=== PATIENT | female | born 2000 | race Caucasian/White ===

== ENCOUNTER 2018-12-26 09:29 | Emergency (ER) | payer OTHER ==
[2018-12-26 09:35] VITALS: BP 128/75; PULSE 93; TEMP 98.6; BMI 34.3
--- NOTE | 2018-12-26 10:13 | PDOC ---
History of Present Illness - General Chief Complaint: Urinary Problem Stated Complaint: POSSIBLE UTI Time Seen by Provider: 12/26/18 09:56 History Source: Patient Exam Limitations: No Limitations - History of Present Illness Initial Comments: 12/26/18 10:05 18 yo F 15 weeks (LMP Jul), comes in c/o 2 days of burning/pain on urination with frequency/urgency on urination. She also states that she saw blood in her urine this morning and when she wiped but she is unsure if she was bleeding from the vagina or from the urine. No abdominal pain, no fever/chills, no NVD, no change in appetite, no vaginal discharge. NO other complaints today. Pt has care, has had a documented IUP [id number] Past History - Past Medical History Allergies/Adverse Reactions: Allergies Allergy/AdvReac Type Severity Reaction Status Date / Time No Known Allergies Allergy Verified 12/26/18 09:35 Home Medications: Ambulatory Orders Nitrofurantoin Monohyd/M-Cryst [Macrobid -] 100 mg PO BID #14 capsule 12/26/18 Prenat 115/Iron Fum/Folic/Dss [ 19 Tablet] 1 each PO BID 12/26/18 COPD: No - Suicide/Smoking/Psychosocial Hx Smoking History: Never smoked Review of Systems - Review of Systems Able to Perform ROS?: Yes Constitutional: No: Chills, Fever, Malaise, Night Sweats HEENTM: No: Eye Pain, Recent change in vision, Throat Pain Respiratory: No: Cough, Shortness of Breath Cardiac (ROS): No: Chest Pain, Palpitations, Chest Tightness ABD/GI: No: Diarrhea, Nausea, Vomiting, Abdominal cramping : Yes: Dysuria, Hematuria Musculoskeletal: No: Back Pain Integumentary: No: Rash Neurological: No: Headache, Numbness, Dizziness Psychiatric: No: Change in Appetite Endocrine: No: Unexplained Weight Loss *Physical Exam - Vital Signs Last Vital Signs Temp Pulse Resp BP Pulse Ox 98.6 F 93 H 18 128/75 97 12/26/18 09:32 12/26/18 09:32 12/26/18 09:32 12/26/18 09:32 12/26/18 09:32 - Physical Exam General Appearance: Yes: Nourished. No: Apparent Distress HEENT: positive: TONIA, Normal ENT Inspection, Normal Voice. negative: Pale Conjunctivae, Scleral Icterus (R), Scleral Icterus (L) Neck: positive: Supple. negative: Decreased range of motion, Tender midline Respiratory/Chest: positive: Lungs Clear, Normal Breath Sounds. negative: Respiratory Distress, Accessory Muscle Use Cardiovascular: positive: Regular Rhythm, Regular Rate Female Pelvic Exam: positive: normal external exam. negative: CMT, vaginal bleeding Gastrointestinal/Abdominal: positive: Normal Bowel Sounds, Soft. negative: Tender Musculoskeletal: positive: Normal Inspection. negative: CVA Tenderness, Decreased Range of Motion Extremity: positive: Normal Capillary Refill, Normal Inspection, Normal Range of Motion. negative: Tender, Pedal Edema Integumentary: positive: Normal Color, Dry. negative: Jaundice, Rash Neurologic: positive: Fully Oriented, Alert, Normal Mood/Affect Moderate Sedation - Procedure Monitoring Vital Signs: Procedure Monitoring Vital Signs Temperature 98.6 F 12/26/18 09:32 Pulse Rate 93 H 12/26/18 09:32 Respiratory Rate 18 12/26/18 09:32 Blood Pressure 128/75 12/26/18 09:32 O2 Sat by Pulse Oximetry (%) 97 12/26/18 09:32 Medical Decision Making - Medical Decision Making 12/26/18 10:13 18 yo F 15weeks , w/ likely UTI w/ hematuria. NO vaginal bleeding seen one exam. Pt does not have spotting/bleeding/no blood in underwear. BLood that she noticed was only with urination. WIll treat with macrobid and will have her follow up with her OBGYN Return for worsening/concerning symptoms Pt verbalizes understanding and agreees with plan *DC/Admit/Observation/Transfer Diagnosis at time of Disposition: Urinary tract infection Qualifiers: Urinary tract infection type: acute cystitis Hematuria presence: with hematuria Qualified Code(s): N30.01 - Acute cystitis with hematuria - Discharge Dispostion Disposition: HOME Condition at time of disposition: Stable - Referrals - Patient Instructions Printed Discharge Instructions: DI for Urinary Tract Infection (UTI) Additional Instructions: Follow up with your OBGYN. Return for worsening/concerning symptoms including abdominal pain, vaginal bleeding - Post Discharge Activity
[2018-12-26 10:42] LABS: HCG,QUALITATIVE URINE Positive
[2018-12-26 12:55] LABS: URINE APPEARANCE CLOUDY; URINE BILIRUBIN NEGATIVE (<2.0 mg/dL); URINE COLOR YELLOW; URINE GLUCOSE (UA) NEGATIVE (NEGATIVE); URINE KETONE NEGATIVE (NEGATIVE); URINE LEUK ESTERASE 2+ (NEGATIVE); URINE NITRITE NEGATIVE (NEGATIVE); URINE PROTEIN 2+ (NEGATIVE); URINE UROBILINOGEN NEGATIVE mg/dL (0.2-1.0)
[2018-12-26 13:19] LABS: EPI CELLS RARE /HPF (FEW); URINE BACTERIA FEW /hpf (NONE SEEN); URINE MUCUS RARE
== END 2018-12-26 10:39 | disposition home or self-care (01) ==
LOC: JERFT 09:29
DX: O26.892 Other specified pregnancy related conditions, second trimester (principal); O23.12 Infections of bladder in pregnancy, second trimester; N30.81 Other cystitis with hematuria; Z3A.15 15 weeks gestation of pregnancy
CPT/HCPCS: 81003; 81015; 84703; 87086; 87186; 99281-25

== ENCOUNTER 2019-06-12 19:54 | Inpatient (IN) | payer OTHER ==
[2019-06-12] MEDS ORDERED: DEXTROSE 5%-LACTATED RINGERS 1,000 ML IV ONE (20:40)
[2019-06-12 21:36] VITALS: BMI 43.2
--- NOTE | 2019-06-12 21:40 | HP ---
Past Medical History - Admission Chief Complaint: Labor pain History of Present Illness: 18 yo , @ 39 weeks gestation, EDC 06/18/19, admitted for labor pain. Upon admission she was 5cm dilated. History Source: Patient Limitations to Obtaining History: No Limitations - Past Medical History ...: 1 ...Para: 0 ...Term: 0 ...: 0 ...Spon : 0 ...Induced : 0 ...LMP: 09/11/18 ... Weeks Gestation by Dates: 39.1 ...EDC by Dates: 06/18/19 ...EDC by Sono: 06/18/19 - Past Surgical History Past Surgical History: Yes: None Hx Myomectomy: No Hx Transabdominal Cerclage: No - Smoking History Smoking history: Never smoked - Social History Usual Living Arrangement: Yes: With Parent Home Medications - Allergies Allergies/Adverse Reactions: Allergies Allergy/AdvReac Type Severity Reaction Status Date / Time No Known Allergies Allergy Verified 06/12/19 20:33 - Home Medications Home Medications: Ambulatory Orders Prenat 115/Iron Fum/Folic/Dss [ 19 Tablet] 1 each PO BID 12/26/18 Review of Systems - Review of Systems Constitutional: reports: No Symptoms Eyes: reports: No Symptoms HENT: reports: No Symptoms Neck: reports: No Symptoms Cardiovascular: reports: No Symptoms Respiratory: reports: No Symptoms Gastrointestinal: reports: No Symptoms Genitourinary: reports: Pain Breasts: reports: No Symptoms Reported Musculoskeletal: reports: No Symptoms Neurological: reports: No Symptoms Endocrine: reports: No Symptoms Psychiatric: reports: No Symptoms Pain Intensity: 7 Physical Exam - Maternity Vital Signs: Vital Signs Temperature 99.3 F 06/12/19 20:40 Pulse Rate 102 H 06/12/19 20:40 Respiratory Rate 20 06/12/19 20:40 Blood Pressure 139/87 06/12/19 20:40 O2 Sat by Pulse Oximetry (%) Constitutional: Yes: Well Nourished Eyes: Yes: Conjunctiva Clear HENT: Yes: Atraumatic Neck: Yes: Supple Cardiovascular: Yes: Regular Rate and Rhythm Lungs: Clear to auscultation - Abdominal Exam/OB Number of Fetuses: Single Presentation: Vertex Intensity: Moderate - Vaginal Exam/OB Dilatation (cm): 5 Effacement (%): 90 Amniotic Membrane Status: Intact Presentation: Vertex/Position Station: -1 - Physical Exam ...Motor Strength: WNL Psychiatric: Yes: Alert, Oriented Problem List - Problems (1) 39 weeks gestation of Code(s): Z3A.39 - 39 WEEKS GESTATION OF (2) Pain during labor Code(s): O99.89 - OTH DISEASES AND CONDITIONS COMPL PREG/CHLDBRTH; R52 - PAIN, UNSPECIFIED Assessment/Plan Active labor Admit to L&D Analgesia as needed Anticipate
[2019-06-12 21:45] LABS: BASO % 0.2 % (0-2.0); EOS % 0.5 % (0-4.5); HEMATOCRIT 40.9 % (32.4-45.2); HEMOGLOBIN 14.1 GM/dL (10.7-15.3); LYMPH % 19.3 % (8-40); MCH 31.8 pg (25.7-33.7); MCHC 34.6 g/dl (32.0-36.0); MEAN PLT VOLUME 7.9 fl (7.5-11.1); MONO % 7.4 % (3.8-10.2); NEUT % 72.6 % (42.8-82.8); PLATELET COUNT 137 K/MM3 (134-434); RBC 4.44 M/mm3 (3.60-5.2); RDW 13.4 % (11.6-15.6); WHITE BLOOD COUNT 7.3 K/mm3 (4.0-10.0)
[2019-06-12] MEDS ORDERED: DEXTROSE 5%-LACTATED RINGERS 1,000 ML IV SCH (21:45)
[2019-06-12 21:56] LABS: COCAINE, UR NEGATIVE ng/ml (CUTOFF=300); METHADONE, UR NEGATIVE ng/ml (CUTOFF=300); OPIATES, URI NEGATIVE ng/ml (CUTOFF=300); PHENCYCLIDINE,URINE NEGATIVE ng/ml (CUTOFF=25); URINE AMPHETAMINES NEGATIVE ng/ml (CUTOFF=500); URINE BARBITURATES NEGATIVE ng/ml (CUTOFF=200); URINE BENZODIAZEPINES NEGATIVE ng/ml (CUTOFF=200)
[2019-06-12 21:57] LABS: INR 0.97 (0.83-1.09); PROTHROMBIN TIME (PATIENT) 11.4 SEC (9.7-13.0)
[2019-06-12] MEDS ORDERED: FENTANYL/BUPIVACAINE/NS/PF - PCEA - 50 ML DISP.SYRIN EP ONE (21:57)
[2019-06-12 22:00] LABS: ACTIVATED PTT 28.5 SECONDS (25.2-36.5)
[2019-06-12] MEDS ORDERED: ELECTROLYTE-148 SOLN 1,000 ML IV SCH (22:00)
[2019-06-12] MEDS ORDERED: NALOXONE HCL 0.4 MG/ML VIAL IVPUSH PRN (22:08)
[2019-06-12] MEDS ORDERED: BUPIVACAINE HCL/PF 2.5 MG/ML - 30 ML VIAL IJ ONE (22:10)
[2019-06-12] MEDS ORDERED: LIDO 2%/EPI 1:200000 PRESRVFRE (20 ML SDVIAL) ONE (22:10)
[2019-06-12 22:15] LABS: BLOOD UREA NITROGEN 8.2 mg/dL (7-18); CALCIUM 8.7 mg/dL (8.5-10.1); CREATININE 0.8 mg/dL (0.55-1.3); POTASSIUM 3.5 mmol/L (3.5-5.1)
[2019-06-12] MEDS ORDERED: FENTANYL/BUPIVACAINE/NS/PF - PCEA - 50 ML DISP.SYRIN EP SCH (22:15)
[2019-06-13] MEDS ORDERED: OXYTOCIN 30 UNITS in 0.9% NS 30 UNIT/500 ML INFUS.BAG IVPB ONE (00:46)
[2019-06-13] MEDS ORDERED: OXYTOCIN 30 UNITS in 0.9% NS 30 UNIT/500 ML INFUS.BAG IVPB SCH (01:00)
[2019-06-13] MEDS ORDERED: FENTANYL/BUPIVACAINE/NS/PF - PCEA - 50 ML DISP.SYRIN EP ONE ×2 (01:12→03:29)
[2019-06-13] MEDS ORDERED: LIDO 2%/EPI 1:200000 PRESRVFRE (20 ML SDVIAL) ONE (03:59)
[2019-06-13] MEDS ORDERED: CITRIC ACID/SODIUM CITRATE 30 ML UNIT-DOSE CUP PO ONE (04:02)
--- NOTE | 2019-06-13 04:06 | PN ---
Progress Note (short form) - Note Progress Note: Patient seen and evaluated, status post epidural anesthesia, c/o moderate discomfort. No cervical change since admission. Decision made for . Consent signed Anesthesiologist called Problem List - Problems (1) 39 weeks gestation of Code(s): Z3A.39 - 39 WEEKS GESTATION OF (2) Pain during labor Code(s): O99.89 - OTH DISEASES AND CONDITIONS COMPL PREG/CHLDBRTH; R52 - PAIN, UNSPECIFIED
[2019-06-13] MEDS ORDERED: ceFAZolin SODIUM 1 GM VIAL ONE (04:09)
[2019-06-13] MEDS ORDERED: morphine SULFATE/PF 0.5 MG/ML (2cc Syringe - QUVA) ONE (04:22)
[2019-06-13] MEDS ORDERED: ONDANSETRON 4 MG/2 ML VIAL IVPUSH PRN (04:35)
[2019-06-13] MEDS ORDERED: morphine SULFATE/PF 0.5 MG/ML (2cc Syringe - QUVA) EP ONE (04:35)
[2019-06-13] MEDS ORDERED: OXYTOCIN 10 UNITS/ML VIAL ONE ×2 (04:44→04:52)
[2019-06-13] MEDS ORDERED: METHYLERGONOVINE MALEATE 0.2 MG/1 ML AMP IM PRN (05:27)
--- NOTE | 2019-06-13 05:31 | OP ---
Operative Note - Note: Operative Date: 06/13/19 Pre-Operative Diagnosis: 39 weeks of gestation / Arrest of dilatation Operation: Primary Low Transverse Findings: Baby boy in cephallic presentation Nuchal cord x 2 Post-Operative Diagnosis: Same as Pre-op Surgeon: Katina Moreno Electrical Engineer: Luis Ordoñez Anesthesia: Spinal Specimens Removed: Placenta Estimated Blood Loss (mls): 700 Operative Report Dictated: Yes
[2019-06-13 05:34] LABS: ARTERIAL BLD GAS O2 SATURATION 17.7 % (95-98); ARTERIAL BLOOD GAS BASE EXCESS -6.6 meq/l (-2-2); ARTERIAL BLOOD GAS PCO2 61.3 mmHg (35-45)
[2019-06-13 05:40] LABS: VENOUS PC02 47.8 mmHg (41-51)
[2019-06-13 05:47] LABS: ARTERIAL BLOOD GAS PO2 < 49 mmHg (80-105)
[2019-06-13 05:54] LABS: VENOUS PO2 < 49 mmHg (30-40)
[2019-06-13 05:57] LABS: VENOUS PH 7.27 (7.31-7.41)
[2019-06-13] MEDS: OXYTOCIN 20 UNITS in 0.9% NS 20 UNIT/1,000 ML INFUS.BAG IV SCH ×2 (07:00→16:09)
[2019-06-13] MEDS ORDERED: IBUPROFEN 800 MG/8 ML IJ IVPB ONE (07:35)
[2019-06-13] MEDS: IBUPROFEN 800 MG/8 ML IJ IVPB PRN ×2 (07:40→20:26)
[2019-06-13] MEDS: FERROUS SO4 325 MG TABLET (FP) PO SCH ×2 (09:56→21:23)
[2019-06-13] MEDS: PRENATAL VITAMINS W/ FOLIC ACID TABLET (FP) PO SCH (09:57)
[2019-06-14] MEDS ORDERED: BISACODYL 10 MG SUPP.RECT RC PRN (05:28)
[2019-06-14] MEDS: IBUPROFEN 800 MG/8 ML IJ IVPB PRN (06:22)
--- NOTE | 2019-06-14 07:36 | PN ---
Post Progress Note - Subjective Subjective: Ambulating, tolerating Po, lochia decreased, passing flatus Post Day: 1 Type of Delivery: Primary C/S Vital Signs: Vital Signs Temperature 100.0 F H 06/14/19 06:00 Pulse Rate 100 H 06/14/19 00:30 Respiratory Rate 20 06/14/19 06:00 Blood Pressure 134/77 06/14/19 00:30 O2 Sat by Pulse Oximetry (%) 100 06/13/19 06:25 Breast Exam: Yes: Other (deferred) Uterus: Yes: Fundus Firm Abdomen/GI: Yes: Abdomen soft Extremities: Yes: Calves non-tender Activity: Ambulating - Labs Labs: CBC WBC 7.3 K/mm3 (4.0-10.0) 06/12/19 21:30 RBC 4.44 M/mm3 (3.60-5.2) 06/12/19 21:30 Hgb 14.1 GM/dL (10.7-15.3) 06/12/19 21:30 Hct 40.9 % (32.4-45.2) 06/12/19 21:30 MCV 92.0 fl (80-96) 06/12/19 21:30 MCH 31.8 pg (25.7-33.7) 06/12/19 21:30 MCHC 34.6 g/dl (32.0-36.0) 06/12/19 21:30 RDW 13.4 % (11.6-15.6) 06/12/19 21:30 Plt Count 137 K/MM3 (134-434) 06/12/19 21:30 MPV 7.9 fl (7.5-11.1) 06/12/19 21:30 Absolute Neuts (auto) 5.3 K/mm3 (1.5-8.0) 06/12/19 21:30 Neutrophils % 72.6 % (42.8-82.8) 06/12/19 21:30 Lymphocytes % 19.3 % (8-40) 06/12/19 21:30 Monocytes % 7.4 % (3.8-10.2) 06/12/19 21:30 Eosinophils % 0.5 % (0-4.5) 06/12/19 21:30 Basophils % 0.2 % (0-2.0) 06/12/19 21:30 Nucleated RBC % 0 % (0-0) 06/12/19 21:30 Assessment/Plan POD # 1 S/P PLTCS for arrest of dilatation, borderline febrile x 2, and tachycardic. -F/U am CBC -Kefzol x 24 hours -tylenol -Continue inpatient care
[2019-06-14 07:40] LABS: BASO % 0.2 % (0-2.0); EOS % 0.3 % (0-4.5); HEMOGLOBIN 11.9 GM/dL (10.7-15.3); MCH 32.1 pg (25.7-33.7); MEAN CELL VOLUME 91.7 fl (80-96); MEAN PLT VOLUME 7.5 fl (7.5-11.1); MONO % 7.2 % (3.8-10.2); NEUT % 83.3 % (42.8-82.8); PLATELET COUNT 112 K/MM3 (134-434); RBC 3.71 M/mm3 (3.60-5.2); RDW 13.3 % (11.6-15.6); WHITE BLOOD COUNT 9.9 K/mm3 (4.0-10.0)
--- NOTE | 2019-06-14 08:00 | PN ---
Progress Note (short form) - Note Progress Note: Post op day#1.S/P C secton under spinal anesthesia with duramorph uneventful.Patient stable.No any anesthesia related problem.Patient DC from the anesthesia care.
[2019-06-14] MEDS: CEFAZOLIN 1 GM in DEXTROSE 5%-WATER - 50 ML IVPB SCH ×2 (09:46→17:07)
[2019-06-14] MEDS ORDERED: DIPHTH,PERTUSS(ACELL),TET 0.5 ML DISP.SYRIN IM ONE (10:00)
[2019-06-14] MEDS: FERROUS SO4 325 MG TABLET (FP) PO SCH (10:34)
[2019-06-14] MEDS: PRENATAL VITAMINS W/ FOLIC ACID TABLET (FP) PO SCH (10:34)
--- NOTE | 2019-06-14 15:38 | PATH ---
Surgical Pathology Report Patient Name: DARREN MARROQUIN Med. Rec. #: [id number] /Age/Gender: 2000 (Age: 18) / F Account: [id number] Location: 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 Specimen(s) Received PLACENTA Clinical History , 39.1 weeks gestation, primary , arrest of dilatation Final Diagnosis PLACENTA: THIRD TRIMESTER PLACENTA WITH FOCAL CALCIFICATIONS. TRIVASCULAR CORD. MEMBRANES WITH NO DIAGNOSTIC ABNORMALITIES. Electronically Signed Bacilio Godinez M.D. Gross Description The specimen is received fresh labeled placenta and is a 529 gram, 19.0 x 15.0 x 3.2 cm. placenta with attached membranes and umbilical cord. The attached membranes are hinojosa, translucent with focal opacities and insert marginally. The umbilical cord measures 20 cm. in length and averages 1 cm. in diameter. The cord inserts at the margin. No true knots or strictures are identified. Cut surface of the umbilical cord reveals 3 vessels. The surface is li-blue with minimal fibrin deposition and appropriate caliber vessels. The maternal surface is red-brown with focal defects. Sectioning reveals red-brown, spongy parenchyma with mild calcifications. No lesions are identified. Balancer sections are submitted in three cassettes as follows: 1- membrane rolls and umbilical cord; 2-3- full thickness sections of placenta. 06/13/2019 [facility]13[facility]
[2019-06-14] MEDS: IBUPROFEN 600 MG TABLET (FP) PO PRN (19:28)
[2019-06-14] MEDS: SIMETHICONE 80 MG TAB.CHEW (FP) PO PRN (19:29)
[2019-06-14] MEDS: ACETAMINOPHEN 325 MG TABLET (FP) PO PRN (19:29)
--- NOTE | 2019-06-14 21:54 | PN ---
Progress Note (short form) - Note Progress Note: nurse notified pt has high fever T 102, P 120. yesterday she was having low grade fever pt is receiving iv Ancef 1 gm ivpb q8h c/o difficluty urinating , no burning pt pain scale 8/10 oob ambulating not much . passing flatus , bm not done no c/o cough or SOB o/e pt body warm from high fever , appears sick Obese pt face puffy RS cta , breathing shallow large pendulous breast , not engorged PA: obese abdomen abdominal skin edematous Ut firm just below umblicus ,very tender , suprapubic tenderness no cva tenderness Incision reg in situ, no oozing, no erythema Lochia light , odor . lower extremities , no calf tenderness edema 1+/1+ Imp : s/p primary C/section after FTP , po day # 2 Hyperpyrexia secondary to Ac Endomyometritis Plan septic work up increase Ancef to 2 gm ivpb q 8h due to high bmi 43 add gentamicin 80 mg q 8h
[2019-06-15 00:10] LABS: BASO % 0.2 % (0-2.0); HEMOGLOBIN 11.1 GM/dL (10.7-15.3); LYMPH % 16.8 % (8-40); PLATELET COUNT 138 K/MM3 (134-434)
[2019-06-15] MEDS: FERROUS SO4 325 MG TABLET (FP) PO SCH ×3 (00:31→21:43)
[2019-06-15 00:43] LABS: EOS % 0.5 % (0-4.5); HEMATOCRIT 32.3 % (32.4-45.2); MCH 31.8 pg (25.7-33.7); MCHC 34.3 g/dl (32.0-36.0); MEAN CELL VOLUME 92.4 fl (80-96); MEAN PLT VOLUME 7.8 fl (7.5-11.1); NEUT % 72.5 % (42.8-82.8); RBC 3.49 M/mm3 (3.60-5.2); RDW 13.1 % (11.6-15.6); WHITE BLOOD COUNT 10.1 K/mm3 (4.0-10.0)
[2019-06-15 00:50] LABS: EPI CELLS 5.7 /HPF (0-5/HPF); HYALINE CASTS 5 /lpf (0-8); URINE APPEARANCE CLEAR; URINE BACTERIA 5.9 /hpf (NEGATIVE); URINE BILIRUBIN NEGATIVE (NEGATIVE); URINE COLOR YELLOW; URINE GLUCOSE (UA) NEGATIVE (NEGATIVE); URINE KETONE NEGATIVE (NEGATIVE); URINE LEUK ESTERASE TRACE (NEGATIVE); URINE NITRITE NEGATIVE (NEGATIVE); URINE PROTEIN NEGATIVE (NEGATIVE); URINE RBC 33 /hpf (0-4); URINE WBC 4 /hpf (0-5)
[2019-06-15] MEDS: GENTAMICIN 80 MG PREMIXED IVPB 80 MG/100 ML BAG IVPB SCH ×3 (01:36→17:58)
[2019-06-15] MEDS: ceFAZolin 2 GRAM PREMIX BAG IVPB SCH ×3 (02:43→17:10)
[2019-06-15] MEDS: IBUPROFEN 600 MG TABLET (FP) PO PRN ×2 (02:44→17:19)
[2019-06-15] MEDS: ACETAMINOPHEN 325 MG TABLET (FP) PO PRN (02:44)
[2019-06-15] MEDS: SIMETHICONE 80 MG TAB.CHEW (FP) PO PRN ×2 (02:44→17:19)
--- NOTE | 2019-06-15 08:08 | PN ---
Post Progress Note - Subjective Subjective: pt feels better & smiling now no c/o headache pain scale presently is 1-2/10 voiding sometimes with difficulty Post Day: 3 Type of Delivery: Primary C/S Vital Signs: Vital Signs Temperature 97.5 F L 06/15/19 05:30 Pulse Rate 87 06/15/19 05:30 Respiratory Rate 20 06/15/19 05:30 Blood Pressure 126/57 L 06/15/19 05:30 O2 Sat by Pulse Oximetry (%) 100 06/13/19 06:25 t max Selected Entries 06/14/19 19:00 Temperature 102.7 F H Pulse Rate 121 H Blood Pressure 112/67 Breast Exam: Yes: Soft, Other (Bf , pumping & giving to baby). No: Engorged Uterus: Yes: Fundus Firm, Fundus below umbilicus, Other (ut mild tenderness . much imroved compare to last night ) Incision: Yes: [place] intact. No: Redness, Oozing Abdomen/GI: Yes: Abdomen soft (bs active , ), Passing flatus, Tolerating PO ( diet), Other (abd skin edema less ). No: Abdominal Distention (obese abdomen ) , Tender (no suprapubic or cva tenderness) Lochia, amount: Small Extremities: Yes: Calves non-tender, Edema (pedal 1+/1+ , ) Perineum: Yes: Intact Activity: Ambulating - Labs Labs: CBC WBC 10.1 K/mm3 (4.0-10.0) H 06/14/19 23:25 RBC 3.49 M/mm3 (3.60-5.2) L 06/14/19 23:25 Hgb 11.1 GM/dL (10.7-15.3) 06/14/19 23:25 Hct 32.3 % (32.4-45.2) L 06/14/19 23:25 MCV 92.4 fl (80-96) 06/14/19 23:25 MCH 31.8 pg (25.7-33.7) 06/14/19 23:25 MCHC 34.3 g/dl (32.0-36.0) 06/14/19 23:25 RDW 13.1 % (11.6-15.6) 06/14/19 23:25 Plt Count 138 K/MM3 (134-434) D 06/14/19 23:25 MPV 7.8 fl (7.5-11.1) 06/14/19 23:25 Absolute Neuts (auto) 7.4 K/mm3 (1.5-8.0) 06/14/19 23:25 Neutrophils % 72.5 % (42.8-82.8) 06/14/19 23:25 Lymphocytes % 16.8 % (8-40) D 06/14/19 23:25 Monocytes % 10.0 % (3.8-10.2) 06/14/19 23:25 Eosinophils % 0.5 % (0-4.5) 06/14/19 23:25 Basophils % 0.2 % (0-2.0) 06/14/19 23:25 Nucleated RBC % 0 % (0-0) 06/14/19 23:25 Laboratory Tests 06/14/19 21:15 Urine Blood 3+ H Urine Bilirubin Negative Urine WBC (Auto) 4 Urine RBC (Auto) 33 U Epithel Cells (Auto) 5.7 Urine Bacteria (Auto) 5.9 cutures report pending Other Findings, Remarks: RS cta Chest X ray neg Problem List - Problems (1) Status post section routine follow-up Code(s): Z39.2 - ENCOUNTER FOR ROUTINE FOLLOW-UP; Z98.891 - HISTORY OF UTERINE SCAR FROM PREVIOUS SURGERY (2) Acute endomyometritis Code(s): N71.0 - ACUTE INFLAMMATORY DISEASE OF UTERUS Assessment/Plan s/p POd #3 c/s po hyperpyrexia , Ac endomyometritis suspected pt responding to IV ancef & gentamicin Plan ct iv antibiotics encourage incentive spironeter use , deep breathing , ambulation & po fluids can shower ct po care
[2019-06-15] MEDS ORDERED: DIPHTH,PERTUSS(ACELL),TET 0.5 ML DISP.SYRIN IM ONE (10:00)
[2019-06-15] MEDS: PRENATAL VITAMINS W/ FOLIC ACID TABLET (FP) PO SCH (10:51)
--- NOTE | 2019-06-15 16:00 | DS ---
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 Vital Signs: Vital Signs Temperature 98.6 F 06/15/19 14:00 Pulse Rate 101 H 06/15/19 14:00 Respiratory Rate 20 06/15/19 14:00 Blood Pressure 133/75 06/15/19 14:00 O2 Sat by Pulse Oximetry (%) 100 06/13/19 06:25 Eyes: Yes: Conjunctiva Clear HENT: Yes: Atraumatic Neck: Yes: Supple Cardiovascular: Yes: Regular Rate and Rhythm Respiratory: Yes: Regular Gastrointestinal: Yes: Normal Bowel Sounds ...Rectal Exam: Yes: WNL Renal/: Yes: WNL Pelvis: Yes: WNL External Genitalia: Yes: Normal Cervix: Yes: Normal Uterus: Yes: Firm Breast(s): Yes: WNL Musculoskeletal: Yes: WNL Extremities: Yes: WNL Wound/Incision: Yes: Courtney Intact Neurological: Yes: Alert, Oriented ...Motor Strength: WNL Psychiatric: Yes: Alert, Oriented Labs: CBC, BMP 06/14/19 23:25 06/12/19 21:30 Delivery - Delivery Type of Anesthesia: Spinal Episiotomy/Laceration: None EBL (cc): 700 Delivery, Single - Stages of Labor Date 1st Stage Initiatied: 06/12/19 Time 1st Stage Initiated: 17:30 Date of Delivery: 06/13/19 Time of Delivery: 04:44 Time Placenta Delivered: 04:45 - Condition of Tile Layer Drainage/Energy Auditor Present: Yes Name: Puja Dickinson Infant Gender: Male Weight: 7 lb 14 oz Position: Right, OA - 1 Minute Total Score: 9 5 Minutes Total Score: 9 - Feeding Plan Initial Plan: Exclusive throughout hospitalization Discharge Summary Reason For Visit: LABOR ADMIT Current Active Problems 39 weeks gestation of (Acute) Acute endomyometritis (Acute) Pain during labor (Acute) Status post section routine follow-up (Acute) Procedures: Principal: Primary Low Transverse Hospital Course: Routine post op care Condition: Good - Instructions Diet, Activity, Other Instructions: Regular diet No driving, no lifting x 4 weeks F/U in clinic in 1 week. Disposition: HOME - Home Medications Comprehensive Discharge Medication List: Ambulatory Orders Prenat 115/Iron Fum/Folic/Dss [ 19 Tablet] 1 each PO BID 12/26/18
--- NOTE | 2019-06-15 19:01 | OP ---
DATE OF OPERATION: 06/12/2019 PREOPERATIVE DIAGNOSIS: Thirty-nine weeks gestation with arrest of dilatation. POSTOPERATIVE DIAGNOSIS: Thirty-nine weeks gestation with arrest of dilatation. PROCEDURE PERFORMED: Primary low transverse section. SURGEON: Katina Moreno M.D. PAVING SUPERVISOR: LUCIANA Smith ANESTHESIA: Spinal COMPLICATIONS: None. ESTIMATED BLOOD LOSS: 700 mL. DESCRIPTION OF PROCEDURE: The patient was taken to the operating room, where spinal anesthesia was administered. The patient was then prepped and draped in the proper sterile fashion. A Pfannenstiel skin incision was made and carried down through the underlying layer of fascia. The fascia was incised in the midline and extended laterally. The superior aspect of the fascial incision was then grasped with a Jm clamp, elevated, and the rectus muscle dissected off bluntly. Attention was then turned to the inferior aspect of the fascial incision, which, in a similar fashion, was then grasped with a Jm clamp, elevated, and the rectus muscle dissected off bluntly. The rectus muscle was then in the midline, and the peritoneum identified and entered sharply with Metzenbaum scissors. This peritoneal incision was extended superiorly and inferiorly, with good visualization of the bladder. Then the vesicouterine peritoneum was grasped with a pickup and entered sharply with Metzenbaum scissors. This incision was extended laterally and a bladder flap created digitally. A bladder blade was inserted. Then the lower uterine segment was incised using a 10 blade. This incision was extended laterally, and the head delivered atraumatically. The nose and mouth were suctioned, and the cord clamped and cut. The infant was handed to the awaiting tube tester. The placenta was removed manually. The uterus was exteriorized and cleared of all clots and debris. The uterine incision was repaired using 0 Biosyn in a running locked fashion. A second layer of the same suture was used as a means to provide excellent hemostasis. Then the pelvis was completely irrigated. The uterus was returned to the abdomen. The peritoneum was closed using 2-0 Biosyn. The fascia was reapproximated with 0 Vicryl. The skin was closed with reg. The patient tolerated the procedure well. The patient was taken to the PACU in stable condition. PATHOLOGY: Placenta. KATINA MORENO M.D. [id number] MTDD
[2019-06-16] MEDS: ceFAZolin 2 GRAM PREMIX BAG IVPB SCH (01:27)
[2019-06-16] MEDS: GENTAMICIN 80 MG PREMIXED IVPB 80 MG/100 ML BAG IVPB SCH (02:10)
[2019-06-16 06:32] VITALS: BP 130/84; TEMP 99.2
--- NOTE | 2019-06-16 08:03 | PN ---
Post Progress Note Post Day: 3 Type of Delivery: Primary C/S Vital Signs: Vital Signs Temperature 99.2 F 06/16/19 06:31 Pulse Rate 110 H 06/16/19 06:31 Respiratory Rate 20 06/16/19 06:31 Blood Pressure 130/84 06/16/19 06:31 O2 Sat by Pulse Oximetry (%) 100 06/13/19 06:25 Uterus: Yes: Fundus below umbilicus Incision: Yes: Dressing dry and intact Abdomen/GI: Yes: Abdomen soft, Passing flatus, Tolerating PO Lochia, amount: Small Extremities: Yes: Calves non-tender Perineum: Yes: Intact Activity: Ambulating - Labs Labs: CBC WBC 10.1 K/mm3 (4.0-10.0) H 06/14/19 23:25 RBC 3.49 M/mm3 (3.60-5.2) L 06/14/19 23:25 Hgb 11.1 GM/dL (10.7-15.3) 06/14/19 23:25 Hct 32.3 % (32.4-45.2) L 06/14/19 23:25 MCV 92.4 fl (80-96) 06/14/19 23:25 MCH 31.8 pg (25.7-33.7) 06/14/19 23:25 MCHC 34.3 g/dl (32.0-36.0) 06/14/19 23:25 RDW 13.1 % (11.6-15.6) 06/14/19 23:25 Plt Count 138 K/MM3 (134-434) D 06/14/19 23:25 MPV 7.8 fl (7.5-11.1) 06/14/19 23:25 Absolute Neuts (auto) 7.4 K/mm3 (1.5-8.0) 06/14/19 23:25 Neutrophils % 72.5 % (42.8-82.8) 06/14/19 23:25 Lymphocytes % 16.8 % (8-40) D 06/14/19 23:25 Monocytes % 10.0 % (3.8-10.2) 06/14/19 23:25 Eosinophils % 0.5 % (0-4.5) 06/14/19 23:25 Basophils % 0.2 % (0-2.0) 06/14/19 23:25 Nucleated RBC % 0 % (0-0) 06/14/19 23:25 Assessment/Plan 18yo s/p PLTCS, POD#3 c/b endometritis Afebrile, WBC down- d/c Ancef and transition to po Augmentin course Po pain control Labs reviewed D/C to home today with follow up in the office in one week Chase Kidd MD
[2019-06-16 08:25] LABS: BASO % 0.4 % (0-2.0); EOS % 1.4 % (0-4.5); HEMATOCRIT 34.3 % (32.4-45.2); HEMOGLOBIN 12.3 GM/dL (10.7-15.3); LYMPH % 17.7 % (8-40); MCH 32.8 pg (25.7-33.7); MEAN CELL VOLUME 91.3 fl (80-96); MEAN PLT VOLUME 7.5 fl (7.5-11.1); MONO % 9.2 % (3.8-10.2); NEUT % 71.3 % (42.8-82.8); PLATELET COUNT 170 K/MM3 (134-434); RBC 3.76 M/mm3 (3.60-5.2); RDW 13.3 % (11.6-15.6); WHITE BLOOD COUNT 6.9 K/mm3 (4.0-10.0)
[2019-06-16] MEDS: FERROUS SO4 325 MG TABLET (FP) PO SCH (09:48)
[2019-06-16] MEDS: PRENATAL VITAMINS W/ FOLIC ACID TABLET (FP) PO SCH (09:48)
[2019-06-16] MEDS: SIMETHICONE 80 MG TAB.CHEW (FP) PO PRN (09:48)
[2019-06-16] MEDS: IBUPROFEN 600 MG TABLET (FP) PO PRN (09:48)
[2019-06-16] MEDS: ACETAMINOPHEN 325 MG TABLET (FP) PO PRN (09:49)
[2019-06-16 11:59] VITALS: PULSE 100
== END 2019-06-16 13:25 | disposition home or self-care (01) | DRG 540 ==
LOC: JDEL 19:54 → JLDR 21:00 → J3W 06-13 07:35
PROVIDERS: ADMIT Obstetrics & Gynecology; ATTEND Obstetrics & Gynecology
PROC: 10D00Z1 Extraction of Products of Conception, Low, Open Approach (ICD-10-PCS; principal; 2019-06-14)
DX: O62.0 Primary inadequate contractions (principal); O75.3 Other infection during labor; O69.81X0 Labor and delivery complicated by cord around neck, without compression, not applicable or unspecified; Z3A.39 39 weeks gestation of pregnancy; Z37.0 Single live birth
CPT/HCPCS: 36415; 36600; 71046-TC-FY; 80048; 80307; 81003; 82803; 85025; 85610; 85730; 86593; 86850; 86900; 86901; 87040; 87070; 87077; 87086; 87205; 88307-TC

== ENCOUNTER 2019-06-29 11:38 | Emergency (ER) | payer OTHER ==
[2019-06-29 11:45] VITALS: TEMP 98.2; BMI 38.9
--- NOTE | 2019-06-29 12:32 | PDOC ---
History of Present Illness - General Chief Complaint: Wound Stated Complaint: WOUND CARE Time Seen by Provider: 06/29/19 12:12 History Source: Patient - History of Present Illness Associated Symptoms: denies: chest pain, fever/chills, shortness of breath Past History - Past Medical History Allergies/Adverse Reactions: Allergies Allergy/AdvReac Type Severity Reaction Status Date / Time No Known Allergies Allergy Verified 06/29/19 11:46 Home Medications: Ambulatory Orders Prenat 115/Iron Fum/Folic/Dss [ 19 Tablet] 1 each PO BID 12/26/18 Amoxicillin/Potassium Clav [Augmentin 500-125 Tablet] 1 each PO BID #10 tablet 06/16/19 Ibuprofen 600 mg PO Q6H PRN #30 tablet 06/16/19 Asthma: No Cancer: No Cardiac Disorders: No COPD: No Diabetes: No HTN: No Seizures: No Thyroid Disease: No - Suicide/Smoking/Psychosocial Hx Smoking History: Never smoked Hx Alcohol Use: No Drug/Substance Use Hx: No Hx Substance Use Treatment: No Review of Systems - Review of Systems Constitutional: No: Chills, Fever, Malaise ABD/GI: No: Constipated, Diarrhea, Nausea, Vomiting, Abdominal cramping : No: Burning, Dysuria, Flank Pain, Hematuria *Physical Exam - Vital Signs Last Vital Signs Temp Pulse Resp BP Pulse Ox 98.2 F 16 L 14 123/68 97 06/29/19 11:42 06/29/19 11:42 06/29/19 11:42 06/29/19 11:42 06/29/19 11:42 - Physical Exam General Appearance: Yes: Appropriately Dressed. No: Apparent Distress HEENT: positive: Normal Voice Neck: positive: Supple Respiratory/Chest: negative: Respiratory Distress Gastrointestinal/Abdominal: positive: Soft, Other (minimal localized swelling to L corner of csection site, no fluctuance, erythema, warmth or sig ttp) Musculoskeletal: negative: CVA Tenderness Integumentary: positive: Dry, Warm Neurologic: positive: Fully Oriented, Alert, Normal Mood/Affect ED Treatment Course - LABORATORY CBC & Chemistry Diagram: 06/29/19 14:20 06/29/19 14:20 Medical Decision Making - Medical Decision Making 06/29/19 12:28 18-year-old female, s/p 2 weeks ago, C/B by endometritis, completed course amoxicillin, here with complaint that she noticed some bleeding to C- section site last night that has since resolved. 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 Recommends labs in ED and if normal, patient can be discharged to follow-up with him in the a.m. in clinic 06/29/19 15:43 Blood work unremarkable. UA with 3+ leuks, >200 wbc and>100 marlen. Patient reports no dysuria at this time and no flank pain, nausea, vomiting, fever or chills. S/p recent course of amoxicillin for endometritis. Will hold off on antibiotics at this time and follow-up on culture report. Patient remains well- appearing and stable here. Dr Duran currently in ED evaluating pt, agrees that possibly small post op collection (i.e hematoma, seroma, etc), less likely abscess or infxn. reviewed labs. Pt to f/u in clinic in the am. Rpt HR 86. *DC/Admit/Observation/Transfer Diagnosis at time of Disposition: Post-op bleeding Qualifiers: Surgical complication system/body Area: subcutaneous tissue Procedure type: non -dermatologic Qualified Code(s): L76.22 - Postprocedural hemorrhage of skin and subcutaneous tissue following other procedure - Discharge Dispostion Condition at time of disposition: Good - Referrals Referrals: ON STAFF,NOT [Primary Care Provider] - - Patient Instructions Additional Instructions: Your blood work was blood work was unremarkable here Please walk in to see Dr Joseph of [employer] [facility] at [address] in the am - Post Discharge Activity
[2019-06-29 14:53] LABS: BASO % 0.5 % (0-2.0); EOS % 1.3 % (0-4.5); HEMATOCRIT 40.9 % (32.4-45.2); HEMOGLOBIN 14.2 GM/dL (10.7-15.3); LYMPH % 31.3 % (8-40); MCH 30.9 pg (25.7-33.7); MCHC 34.7 g/dl (32.0-36.0); MONO % 6.6 % (3.8-10.2); NEUT % 60.3 % (42.8-82.8); PLATELET COUNT 277 K/MM3 (134-434); RBC 4.59 M/mm3 (3.60-5.2); RDW 12.7 % (11.6-15.6); WHITE BLOOD COUNT 8.2 K/mm3 (4.0-10.0)
[2019-06-29 14:56] LABS: EPI CELLS 1.8 /HPF (0-5/HPF); HYALINE CASTS 8 /lpf (0-8); URINE APPEARANCE CLOUDY; URINE BACTERIA 136.3 /hpf (NEGATIVE); URINE BILIRUBIN NEGATIVE (NEGATIVE); URINE COLOR YELLOW; URINE GLUCOSE (UA) NEGATIVE (NEGATIVE); URINE KETONE NEGATIVE (NEGATIVE); URINE LEUK ESTERASE 3+ (NEGATIVE); URINE NITRITE NEGATIVE (NEGATIVE); URINE PROTEIN NEGATIVE (NEGATIVE); URINE RBC 13 /hpf (0-4); URINE UROBILINOGEN 0.2 mg/dL (0.2-1.0); URINE WBC 223 /hpf (0-5)
[2019-06-29 15:21] LABS: ALBUMIN 3.8 g/dl (3.4-5.0); BILIRUBIN,TOTAL 0.5 mg/dL (0.2-1); BLOOD UREA NITROGEN 13.1 mg/dL (7-18); CALCIUM 9.7 mg/dL (8.5-10.1); POTASSIUM 3.7 mmol/L (3.5-5.1)
[2019-06-29 15:49] VITALS: BP 118/71; PULSE 80
== END 2019-06-29 15:54 | disposition home or self-care (01) ==
LOC: JER 11:38
DX: O90.89 Other complications of the puerperium, not elsewhere classified (principal); O90.2 Hematoma of obstetric wound; L76.22 Postprocedural hemorrhage of skin and subcutaneous tissue following other procedure
CPT/HCPCS: 36415; 80053; 81003; 85025; 87086; 99282-25